=== PATIENT | female | born 1950 | race Caucasian/White ===

== ENCOUNTER 2018-03-14 15:21 | Emergency (ER) | payer MEDICAID, MEDICARE, OTHER ==
--- NOTE | 2018-03-14 15:49 | ED ---
Throat Pain/Nasal Congestion - HPI Summary HPI Summary: Complete HPI unobtainable due to level 5 caveat of dementia. Pt is 67 y/o F brought by EMS to [facility] due to facial injury. Pt resides at [facility] on Hospice. Per nurses report, pt fell from her bed around 1410, hit the bed, and lost her two front central incisors and left canine. PMHx of Alzheimer's. Vital signs while in room: HR 71 bpm, BP 155/72. Zohra Duval RN from Hospice called ahead about patient and stated that family had been notified of the fall , son Hu Parra [phone], and Hu had wanted transport to the hospital, despite [facility] stating, not to transfer to hospital. Pt has been on hospice since Jan 27 for Alzheimer's and weight loss. Pt is not on regular morphine or lorazepam prn. 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 Pt presented with the 2 central teeth that were pulled out including the root, and the one tooth that broke off at the root. - History of Current Complaint Chief Complaint: EDFacialInjury Time Seen by Provider: 03/14/18 15:39 Hx Obtained From: Patient Hx From Patient Unobtainable Due To: Dementia - nonverbal and Alzheimer's Onset/Duration: Sudden Onset Severity: Moderate Associated Signs And Symptoms: Positive: Negative Cough: None Related History: Other (Noted In Comments) - on Hospice with [facility] form - Allergies/Home Medications Allergies/Adverse Reactions: Allergies Allergy/AdvReac Type Severity Reaction Status Date / Time NSAIDS (Non-Steroidal Allergy Unknown Verified 03/14/18 16:23 Anti-Inflamma Reaction Details Home Medications: Home Medications Acetaminophen SUPP* [Tylenol Supp*] 650 mg MA Q6H PRN 03/14/18 [History Confirmed 03/14/18] Acetaminophen [Tylenol Extra Strength] 1,000 mg PO Q8H PRN 03/14/18 [History Confirmed 03/14/18] Sennosides/Docusate Sodium [Colace 2-in-1 8.6-50 mg] 1 tab PO DAILY 03/14/18 [ History Confirmed 03/14/18] levETIRAcetam [Keppra 250] 250 mg PO BID 03/14/18 [History Confirmed 03/14/18] PMH/Surg Hx/FS Hx/Imm Hx Previously Healthy: No Endocrine/Hematology History: Denies: Hx Diabetes Cardiovascular History: Reports: Hx Angina, Hx Hypertension, Other Cardiovascular Problems/Disorders - RIGHT BUNDLE BRANCH BLOCK Denies: Hx Congestive Heart Failure, Hx Pacemaker/ICD Respiratory History: Denies: Hx Asthma, Hx Chronic Obstructive Pulmonary Disease (COPD) History: Reports: Hx Kidney Infection Denies: Hx Renal Disease Musculoskeletal History: Reports: Hx Back Problems Sensory History: Reports: Hx Contacts or Glasses - not with her Denies: Hx Hearing Aid Opthamlomology History: Reports: Hx Contacts or Glasses - not with her Neurological History: Reports: Other Neuro Impairments/Disorders - Alzheimer's Psychiatric History: Denies: Hx Panic Disorder - Surgical History Surgery Procedure, Year, and Place: back sx on L5 and S1 d/t herniated discs/ BILATERAL KNEE REPLACEMENTS Hx Anesthesia Reactions: No Infectious Disease History: Unable to Obtain/Confirm Infectious Disease History: Denies: Traveled Outside the [place] in Last 30 Days - Family History Known Family History: Positive: Other - Level 5 caveat Family History: Complete PMHx and FHx unobtainable due to level 5 caveat of dementia. - Social History Occupation: Disabled Lives: [facility] Alcohol Use: None Substance Use Type: Reports: None Smoking Status (MU): Former Smoker Review of Systems Negative: Fever Positive: Other - Loss of teeth Positive: Other - furrows brow with touching post neck Psychological: Other - baseline per EMS per Harry Tracy All Other Systems Reviewed And Are Negative: No - Comments Additional Review of Systems Comments: Complete ROS unobtainable due to level 5 caveat of dementia. Physical Exam - Summary Physical Exam Summary: Appearance: Chronically ill-appearing, pain distress as evidenced by furrowed brow only with touching neck or gums where teeth are avulsed, thin, chronic contractures of upper and lower extremities, nonverbal, pt smiles at times Skin: Warm, color reflects adequate perfusion, dry Head: avulsed teeth as below, bleeding controlled, blood on lower lip, no bony tenderness of jaw or scalp, no cephalohematoma Eyes: Conjunctiva clear, PERRL EOMI ENT: Front central incisors are completely avulsed to the root and left canine is avulsed at the root Neck: Supple, no nodes, no JVD Respiratory: Lungs clear, normal breath sounds, no respiratory distress Cardio: RRR, No murmur, pulses normal, brisk capillary refill Abdomen: Soft, nontender Bowel sounds: Present Musculoskeletal:, no edema, no sign of acute injury to upper or lower extremities, chronic contractures of upper and lower extremities Psychological: Nonverbal, smiles sometimes, furrows brow with pain Neuro: Alert, facial symmetry, chronic contracted extremities Triage Information Reviewed: Yes Vital Signs On Initial Exam: Initial Vitals Temp Pulse Resp BP Pulse Ox 98 F 73 16 155/72 100 03/14/18 15:26 03/14/18 15:26 03/14/18 15:26 03/14/18 15:26 03/14/18 15:26 Vital Signs Reviewed: Yes Diagnostics - Vital Signs Vital Signs Temp Pulse Resp BP Pulse Ox 03/14/18 15:26 98 F 73 16 155/72 100 - Laboratory Lab Statement: Any lab studies that have been ordered have been reviewed, and results considered in the medical decision making process. - CT Cervical Spine CT CT Interpretation Completed By: Radiologist - Impression: No evidence for traumatic cervical spine injury. ED Physician reviewed this report. Re-Evaluation - Re-Evaluation First Eval Re-Evaluation Time: 19:50 Change: Improved Comment: Pt lying on stretcher, does not furrow brow, eyes open, smiles. Minimal upper lip swelling. No bleeding from nose or mouth. Pt will be transported home by stretcher to [facility] as pt has flexion contractures of all four extremities and cannot sit in wheelchair or bear weight. Dr. Luna spoke with son, Hu by phone who voices understanding of pt's condition, and agrees with care, and transfer back to [facility]. EENT Course/Dx - Course Course Of Treatment: Pt is 67 y/o F brought by EMS to [facility] due to facial injury. Per nurses report, pt fell from her bed around 1410, hit the bed, and lost her two front central incisors and left canine. Vital signs while in room: HR 71 bpm, BP 155/72. Physical exam reveals pt is nonverbal, has chronic contractures of lower and upper extremities, pt smiles, and furrows her brow when her neck is touched. Cervical Spine CT was negative. Pt had oral care of her mouth, and bleeding was controlled. Pt was given one dose of morphine 5mg sublingual with no further indication of pain as per maite starks. Discussed care with pt's son, who agrees with discharge. Pt's son will contact [facility] about fall prevention, and will follow up with dentist if needed. Pt to return to [facility] via EMS stretcher transport due to her flexion contractures. - Differential Diagnoses Differential Diagnoses: Contusion, Fracture, Fractured Tooth, Mandibular/ Maxillary Trauma, Trauma - Diagnoses Provider Diagnoses: Avulsion of tooth due to trauma, Fall as cause of accidental injury in residential institution as place of occurrence, Cervical pain (neck) Discharge - Sign-Out/Discharge Documenting (check all that apply): Patient Departure - DC - Discharge Plan Condition: Stable Disposition: HOME Patient Education Materials: Fall Prevention for Older Adults (ED) Referrals: Reid Seaman MD [Primary Care Provider] - 2 Days Additional Instructions: You have broken and lost 3 teeth after your fall. You had a CT of your Cervical spine that did not show any fracture. You were given morphine 5mg sublingual for discomfort. You may resume your prior medications and activities. Return to the ER if you any new or worsening symptoms. - Billing Disposition and Condition Condition: STABLE Disposition: Home - Attestation Statements Document Initiated by Scribe: Yes Documenting Scribe: Xiao Benton Provider For Whom Sameer is Documenting (Include Credential): Dr. Shanell Luna MD Scribe Attestation: Xiao Connell, scribed for Dr. Shanell Luna MD on 03/14/18 at 2231. Scribe Documentation Reviewed: Yes Provider Attestation: The documentation as recorded by the scribXiao nieto accurately reflects the service I personally performed and the decisions made by me, Dr. Shanell Luna MD
[2018-03-14] MEDS ORDERED: Morphine ORAL CONCENTRATE* 5 MG/0.25 ML ORAL.SYRIN SL ONE (15:53)
[2018-03-14 20:40] VITALS: BP 146/71
== END 2018-03-14 20:39 | disposition home or self-care (01) ==
LOC: ED 15:21
DX: S02.5XXA Fracture of tooth (traumatic), initial encounter for closed fracture (principal); M54.2 Cervicalgia; Z87.891 Personal history of nicotine dependence; I10 Essential (primary) hypertension; I45.10 Unspecified right bundle-branch block; G30.9 Alzheimer's disease, unspecified; F02.80 Dementia in other diseases classified elsewhere, unspecified severity, without behavioral disturbance, psychotic disturbance, mood disturbance, and anxiety; W06.XXXA Fall from bed, initial encounter; Y92.129 Unspecified place in nursing home as the place of occurrence of the external cause
CPT/HCPCS: 72125; 99282